=== PATIENT | male | born 1985 | race Caucasian/White ===

== ENCOUNTER 2017-06-20 00:08 | Emergency (ER) | payer MEDICAID ==
[~2017-06-20] VITALS: Ht 193 cm; Wt 84.0 kg
[2017-06-20] MEDS ORDERED: amox tr/potassium clavulanate 875/125mg TAB PO ONE (01:30)
[2017-06-20] MEDS ORDERED: TETanus/Pertussis (Acell)/Diphther VAC/PF (Tdap-Adult) 0.5ml syringe IMVAC ONE (01:30)
[2017-06-20] MEDS ORDERED: LIDOcaine 1.5% w/epinephrine 1:200,000 5ml ampul IJ ONE (02:10)
[2017-06-20] MEDS ORDERED: HYDROcodone/acetaminophen 10/325mg tab PO ONE (02:10)
[2017-06-20] MEDS ORDERED: AMOX-422 PO (02:12)
[2017-06-20] MEDS ORDERED: NAPR-56 PO (02:12)
[2017-06-20 02:46] VITALS: BP 138/91
== END 2017-06-20 02:48 | disposition home or self-care (01) ==
LOC: ER 00:10
DX: S51.851A Open bite of right forearm, initial encounter (principal); F17.200 Nicotine dependence, unspecified, uncomplicated; Z79.899 Other long term (current) drug therapy; W54.0XXA Bitten by dog, initial encounter; Y93.89 Activity, other specified; Y92.89 Other specified places as the place of occurrence of the external cause; Y99.8 Other external cause status
CPT/HCPCS: 12001; 73080; 90471; 90715; 99284; J3490